=== PATIENT | male | born 1975 | race Caucasian/White ===

== ENCOUNTER 2025-02-14 23:25 | Emergency (ER) | payer OTHER, SELFPAY ==
--- OUTSIDE RECORDS SUMMARY | 2022-04-10 04:59 | XMS_ITS | Continuity of Care Document ---
Author Organization [facility] Address [address] [place] [address] Phone Care Team Providers Care [employer]obile [employer] Name Role Phone Services, Enabling Unavailable Unavailable Allergies, Adverse Reactions, Alerts Substance Reaction Status Criticality No Known Allergies Active No Inform ation Medications Medication Instructions Dosage Effective Dates (start - stop) Status Comments Wellbutrin SR 150 mg tablet, 12 hr sustained-release take 1 tablet by oral route 1 time daily for 3 days and then increase to 1 tablet twice daily afterwards - Active nicotine 21 mg/24 hr daily transdermal patch apply 1 patch by transdermal route every day and remove at bedtime 21 MG - Active hydrocortisone 2.5 % topical cream with perineal applicator apply by topical route 2- 4 times every day a thin layer to the affected area(s) 0.00 - Active Miralax 17 gram/dose oral powder take (17G) by oral route every day mixed with 8 oz. water, juice, soda, coffee or tea - Active Flonase Allergy Relief 50 mcg/actuation nasal spray,suspension spray 1 - 2 spray by intranasal route every day in each nostril as needed 50-100 MCG - Active Procedures Procedure Date Office OutPatient New Pt 15-29 Min SYST BP >= 140 MM HG6 IT Systolic: BP >= 140 DIAST BP 80-89 MM HG Diastolic: BP <90 WEIGHT RECORDED BODY MASS INDEX DOCD Advance Directives Directive Yes / No Effective Date File Name No Information Encounters Encounter Description Practice Location Reason(s) For Visit Diagnoses Date Provider Providers Copied on Encounter [facility], [address] [place] [address], [id number], tel:[phone] [facility] No Information 2 Services Enabling. [address] [place] [address], [id number] , [place]. tel: [phone] Office OutPatient New Pt 15-29 Min [facility], [address] [place] [address], [id number], [place] tel:[phone] [facility] est care (chief complaint) wrist pain (chief complaint) Body mass index (BMI) 24.0-24.9, adultExercise counselingDietary counseling and surveillanceHyperten melissa, unspecified typeTobacco abuseChronic wrist pain, leftOther chronic painInternal hemorrhoidScreening for lipid disordersScreening for diabetes mellitusScreening for thyroid disorderSinus pressureConstipation , unspecified constipation type 2 Nayana Eugene. [address] [place], [address], [place]. tel: [phone] Family History Family Member Type Diagnosis Age At Onset No Information Payers Payer name Insurance type Covered democrat ID Authoriza tigini(s) [facility] [id number] Wrap [address] [place] [address] [id number] Social History Type Description Quantity Date Captured Comments Alcohol Use Details Unknown Caffeine Use Details Unknown Tobacco Use Status Smoking Status No Information Sex Male Sexual Orientation Straight or heterosexual Gender Identity Male Chief Complaint And Reason For Visit No Information Reason For Referral Reason For Referral No Information Plan Of Treatment Date Type Action Status Goal Dietary manageme nt education, guidance, and counseling completed Referral Ordered: Rad Exam Wrist; Complete Left ordered Future Order: Lab Order CBC (INC LUDES DIFF/PLT) ([id number]), Sent on: Sent Future Order: Lab Order HEMOGLOB IN A1C ([id number]), Sent on: Sent Future Order: Lab Order COMPREHE NSIVE METABOLIC PANEL ([id number]), Sent on: Sent Future Order: Lab Order HEPATITI S B CORE AB TOTAL W/REFL IGM ([id number]), Sent on: Sent Future Order: Lab Order HIV 1/2 ANTIGEN/ANTIBODY, FOURTH GEN W/ REFLEX ([id number]), Sent on: Sent Future Order: Lab Order VITAMIN B12/FOLATE, SERUM PANEL ([id number]), Sent on: Sent Future Order: Lab Order VITAMIN D,25-OH,TOTAL,IA ([id number]), Sent on: Sent Future Order: Lab Order TSH, 3RD GENERATION ([id number]), Sent on: Sent Future Order: Lab Order HEPATITI S A AB, TOTAL W/REFL IGM ([id number]), Sent on: Sent Future Order: Lab Order HEPATITI S B SURFACE ANTIBODY QL ([id number]), Sent on: Sent Future Order: Lab Order HEPATITI S B SURFACE ANTIGEN W/REFL CONFIRM ([id number]), Sent on: Sent History Of Present Illness Encounter Date Complaint History Of Prese nt Illness wrist pain Comments: pt sta raymond chronic, had an injury many years ago, never got seen for it. Still causes him pain. est care Comments: Last s een: [place] and incarceration has not been seen in the last 2-3 yearsMedical History: HTN, ADD, Heart murmur as a childSurgical History: deniesFamily History:Mom: Alzheimer's disease, alcohol abuse, smokerDad: [place] unsure what kindAlcohol: deniesTobacco: 1PPD approximately 25-30 yearsDrugs: MJ weekly, Meth occasionalImmunizations: COVID-19: denies, not interested FLu: denies Tdap: 2-5 years ago Functional Status Date Functional Assessmen t No Information Instructions Date Instruction Additional Infor mation Prescribed activity/ exercise education Related to Body mass index (BMI) 24.0-24.9, adult Dietary management e ducation, guidance, and counseling Related to Body mass index (BMI) 24.0-24.9, adult Assessments Type Assessment Date No Information Patient Care Teams Name Effective Dates (start - stop) Status Members No Information
--- OUTSIDE RECORDS SUMMARY | 2024-02-13 09:44 | XMS_ITS | Continuity of Care Document ---
Author Organization [facility] Address [address] [place] [address] Phone Care Team Providers Care Beam Doffer Name Role Phone PATIENT, DEHAIRER Unavailable Unavai lable Allergies, Adverse Reactions, Alerts Substance Reaction Status Criticality No Known Allergies Active No Inform ation Medications Medication Instructions Dosage Effective Dates (start - stop) Status Comments ibuprofen 800 mg tablet take 1 tablet by oral route 3 times every day with food as needed for Tooth pain 800 MG - Active Procedures Procedure Date Office Visit For Observation ([facility] Intraoral-Periapical First Radiographic Image Bitewing-Single Radiographic Image Extraction, Erupted Tooth Or Exposed Mar t (Elevati Office Visit For Observation ([facility] Referral Indicated Office Visit For Observation ([facility] Intraoral-Periapical First Radiographic Image Bitewing-Single Radiographic Image Referral Indicated Advance Directives Directive Yes / No Effective Date File Name No Information Encounters Encounter Description Practice Location Reason(s) For Visit Diagnoses Date Provider Providers Copied on Encounter [facility], [address] [place], [address], [place] tel:[phone] [facility] No Information PATIENT CARE COORDINAT OR. . [facility], [address] [place], [place], [address] [place] [address] tel:[phone] [facility] Dental Encounter for dental examination and cleaning with abnormal findingsDental caries on smooth surface penetrating into pulp El-0 4 ANTONIO DAMIAN. [address] [place], [place], [address] [place] [address]. tel:[phone] Referring Provider: RICKIE ALVAREZ, [address] [place], [place], [facility]. tel:[phone] [facility], [address] [place] [address], [address] [place] [address] tel:[phone] [facility] Dental caries on smooth surface penetrating into pulp May- 3 QUIN ALFREDO. [address] [place] [address], [id number] , [place]. tel:[phone] Referring Provider: UVALDO WASHINGTON, [address] [place], [place], [facility]. tel:[phone] [facility], [address] [place], [place], [address] [place] [address] tel:[phone] [facility] Dental caries on smooth surface penetrating into pulp Apr- 3 PADMINI BAILON. [address] [place], [place], [address] [place] [address]. tel:[phone] Referring Provider: UVALDO WASHINGTON, [address] [place], [place], [facility]. tel:[phone] [facility], [address] [place], [place], [address] [place] [address] [phone] [facility] Dental caries on smooth surface penetrating into pulpDental caries on smooth surface penetrating into dentin Mar-2 3 PADMINI BAILON. [address] [place], [place], [address] [place] [address]. tel:[phone] Referring Provider: UVALDO WASHINGTON, [address] [place] [address], [facility]. tel:[phone] Family History Family Member Type Diagnosis Age At Onset No Information Payers Payer name Insurance type Covered green party ID Authoriza tion(s) [facility] 21 And Over CI [id number] 18 Wrap [id number] Social History Type Description Quantity Date Captured Comments Sex Male Smoking Status No Information Sexual Orientation Straight or heterosexual Gender Identity Male Chief Complaint And Reason For Visit No Information Reason For Referral Reason For Referral No Information Plan Of Treatment Date Type Action Status Goal Depression screening. Due on due Goal Hepatitis C screening. Due o n due Goal Drug Use Screening. Due on due Goal Hepatitis B Screening. Due o n due Goal Lipid panel. Due on due Goal HIV Screening. Due on due Goal PPD (TST). Due on due Goal FIT. Due on due Goal Colonoscopy. Due on due Goal FIT-DNA. Due on due Goal FIT-DNA. Due on due Goal Colonoscopy. Due on due Goal FIT. Due on due Goal Lipid panel. Due on due Goal HIV Screening. Due on due Goal Drug Use Screening. Due on due Goal Hepatitis C screening. Due o n due Goal PPD (TST). Due on due Goal Hepatitis B Screening. Due o n due Goal Depression screening. Due on due Referral Ordered: Referrals: Dental - Endodontic. Evaluate and treat ordered History Of Present Illness Encounter Date Complaint History Of Prese nt Illness No Information Functional Status Date Functional Assessmen t No Information Instructions Date Instruction Additional Infor mation No Information Assessments Type Assessment Date No Information Patient Care Teams Name Effective Dates (start - stop) Status Members No Information
[2025-02-14 23:48] VITALS: BP 156/86; PULSE 84; RESP 17; TEMP 36.7; O2SAT 98; BMI 24.4
[2025-02-15 00:20] LABS: Hematocrit 42.8 % (37-53); Hemoglobin 14.10 g/dL (11.27-16.99); Mean Corpuscular HGB Conc 32.9 g/dL (30-55); Mean Corpuscular Hemoglobin 30.2 pg (27-33); Mean Corpuscular Volume 91.6 fl (82-101); Nucleated Red Blood Cells % 0 %; Platelet Count 268 10^3/cmm (157-399); Red Blood Count 4.67 10^6/uL (3.85-5.65); White Blood Count 8.90 10^3/uL (3.29-11.43)
--- NOTE | 2025-02-15 00:24 | CTR_ITS ---
PROCEDURE INFORMATION: Exam: CT Abdomen And Pelvis Without Contrast Exam date and time: 02/15/2025 12:33 AM Age: 49 years old Clinical indication: Abdominal pain; C/O left flank pain with n/v TECHNIQUE: Imaging protocol: Computed tomography of the abdomen and pelvis without contrast. Sagittal and coronal reformatted images were also reviewed. Radiation optimization: All CT scans at this facility use at least one of these dose optimization techniques: automated exposure control; mA and/or kV adjustment per patient size (includes targeted exams where dose is matched to clinical indication); or iterative reconstruction. COMPARISON: No relevant prior studies available. RADIATION DOSE METRICS: Total DLP (mGy-cm): 394.38 FINDINGS: Limitations: Evaluation of solid organs and vasculature is limited without intravenous contrast. This is standard protocol for evaluation of possible urolithiasis. Liver: The liver is unremarkable. Gallbladder and biliary ducts: The gallbladder is unremarkable. No biliary ductal dilatation. Pancreas: The pancreas is unremarkable. No pancreatic ductal dilatation. Spleen: The spleen is unremarkable. Adrenal glands: The right and left adrenal glands are unremarkable. Kidneys and ureters: The right kidney is unremarkable. The right ureter is unremarkable. 2 stones adjacent to each other in the distal left ureter just above the left ureterovesicular junction. The more proximal stone measures 2.5 mm, and the more distal stone measures 3.2 mm (series 4, images 179-180). Mild left hydronephrosis and proximal hydroureter to the level of the stone and mild left perinephric/periureteral inflammation. Stomach and bowel: No acute abnormality in the stomach, small bowel, or colon. Appendix: The appendix is visualized and is unremarkable. No findings to suggest acute appendicitis. Intraperitoneal space: No free intraperitoneal air. No ascites. No loculated fluid collections to suggest an abscess. Vasculature: Minimal atherosclerotic changes in the visualized arteries. No evidence for aortic aneurysm. Lymph nodes: No lymphadenopathy. Urinary bladder: Diffuse, mild bladder wall thickening. Reproductive: Nonspecific parenchymal calcifications in the prostate gland. Bones/joints: [id number] multilevel degenerative changes in the visualized spine. Soft tissues: No acute abnormality in the extra-abdominal soft tissues. CT/CT kidney stone [id number] IMPRESSION: 1. 2 stones adjacent to each other in the distal left ureter just above the left ureterovesicular junction. The more proximal stone measures 2.5 mm, and the more distal stone measures 3.2 mm. Mild left hydronephrosis and proximal hydroureter to the level of the stone and mild left perinephric/periureteral inflammation. 2. Diffuse, mild bladder wall thickening. In the correct clinical setting, this may suggest cystitis. Recommend correlation with laboratory findings. 3. Incidental/nonacute findings are listed in the report.
[2025-02-15 00:34] LABS: Alanine Aminotransferase 23 U/L (0-41); Albumin Level 4.3 g/dL (3.5-5.2); Alkaline Phosphatase 75 U/L (40-130); Anion Gap 16.0 (5-19); Aspartate Amino Transferase 23 U/L (0-40); Blood Urea Nitrogen 15 mg/dL (6-20); Calcium 9.2 mg/dL (8.5-10.5); Carbon Dioxide 25 mmol/L (22-29); Chloride 101 mmol/L (98-107); Creatinine Clr Calc Pharmacy 82.8083; Globulin 2.9 g/dL (1.3-4.6); Glucose 109 mg/dL (65-115); Lipase 35 U/L (13-60); Osmolality Calculated 287 mOsm/kg (285-295); Potassium 4.0 mmol/L (3.5-5.1); Sodium 138 mmol/L (136-145); Total Protein 7.2 g/dL (6.6-8.7)
[2025-02-15] MEDS: ondansetron 2 mg/ML SDV 2 mL 4 MG IVP (00:40)
[2025-02-15 00:41] VITALS: RESP 17
[2025-02-15] MEDS: morphine 4 mg/mL SDV 1 mL IVP (00:41)
[2025-02-15 01:00] VITALS: BP 142/93; PULSE 79; RESP 16; O2SAT 98
[2025-02-15 02:00] VITALS: BP 140/90; PULSE 76; RESP 15; O2SAT 99
[2025-02-15 02:12] LABS: Glucose Urine UA Negative (Normal); Nitrate Urine Negative (Negative); Specific Gravity, Urine 1.015 (1.005-1.030)
[2025-02-15 02:17] LABS: Add Urine Microscopic? YES
[2025-02-15 02:28] LABS: UA Slide Review UA Slide Review Perf
--- NOTE | 2025-02-15 02:44 | ED_ITS ---
HPI - Abdominal Pain 2 General: Chief Complaint: Abdominal Pain Stated Complaint: Kidney stone he believes Time Seen by Provider: 02/15/25 00:20 History of Present Illness: 49 year old male here with left flank an d left lower quadrant pain for one to two hours. He hu been vomiting. Pain is episodic but intense. somewhat improved right now. urine appeared dark period no james blood period no diarrhea period no fever. no history of abdominal surgery. Related Data Previous Rx's ?Medication ?Instructions ?Recorded ondansetron 4 mg disintegrating 4 mg PO Q6H PRN nausea and 02/15/25 tablet vomiting #14 tabs oxycodone-acetaminophen 7.5 mg-325 1 tab PO Q6H PRN pa in #10 tabs 02/15/25 mg tablet (Percocet) tamsulosin 0.4 mg capsule (Flomax) 0.4 mg PO DAILY #10 caps 02/15/25 Allergies Allergy/AdvReac Type Severity Reaction Status Date / Time No Known Allergies Allergy Verified 02/14/25 23:51 Physical Exam 2 Const: GENERAL APPEARANCE: cooperative; not frail appearing HENMT: COMMON NORMALS: normocephalic, atraumatic and Normal external nose present HEAD & SCALP: normocephalic and atraumatic FACE & SINUS: normal facial exam and face symmetric NOSE: Normal external nose present Eye: COMMON NORMALS: Equal, round and reactive pupils present and EOMs intact bilaterally PUPIL: Yes Equal, round and reactive pupils present Neck/C-Spine: GENERAL: Yes trachea midline Chest: CHEST: Yes Symmetrical chest wall rise Resp: COMMON NORMALS: normal respiratory effort, No retractions, No use of accessory muscles and clear to auscultation bilaterally AUSCULTATION: clear to auscultation bilaterally Cardio: COMMON NORMALS: regular rate and regular rhythm RATE: regular rate RHYTHM: regular rhythm GI: COMMON NORMALS: Normal to inspection, nondistended, normoactive bowel sounds present PALPATION: Yes Tenderness to palpation present (GI) Details: LLQ : BLADDER/KIDNEY EXAM: Yes CVA tenderness on the left Back/Pelvis: GENERAL BACK: Yes CVA tenderness Extremity: COMMON NORMALS: no pedal edema Neuro: ARTHUR COMA SCALE: document GCS findings Arthur coma scale eye opening: Spontaneous Arthur coma scale verbal response: Orientated Arthur coma scale motor response: Obey commands Arthur coma scale total score: 15 S ENSORY EXAM: Yes extremities (intact) Psych: COMMON NORMALS: speech normal SPEECH: Yes normal speech Skin: COMMON NORMALS: no rashes or lesions noted GENERAL SKIN EXAM: no rashes or lesions noted Course 2 Vital Signs: Vital signs: Vital Signs Temperature 98.0 F 02/14/25 23:48 Pulse Rate 77 02/15/25 03:02 Respiratory Rate 15 02/15/25 03:02 Blood Pressure 153/86 02/15/25 03:02 Pulse Oximetry 100 02/15/25 03:02 Oxygen Delivery Me thod Room Air 02/15/25 02:00 MDM - Abdominal Pain Medical Decision Making Vitals are stable period laboratory is not remarkable. CT scan shows 2 adjacent stones in the left distal ureter, one 2.5, one 3.2mm. Symptoms are improved currently. He will strain his urine. Pain medication, anti emetic, and Flomax. Urology follow up. Return if worsening symptoms. Urinalysis shows no evidence of infection. Lab Data 02/15/25 00:15 02/15/25 00:15 Labs/Radiology: Radiology Impressions Abdomen/Pelvis CT 02/15/25 00:24 IMPRESSION: 1. 2 stones adjacent to each other in the distal left ureter just above the left ureterovesicular junction. The more proximal stone measures 2.5 mm, and the more distal stone measures 3.2 mm. Mild left hydronephrosis and proximal hydroureter to the level of the stone and mild left perinephric/periureteral inflammation. 2. Diffuse, mild bladder wall thickening. In the correct clinical setting, this may suggest cystitis. Recommend correlation with laboratory findings. 3. Incidental/nonacute findings are listed in the report. Laboratory Results WBC 8.90 10^3/uL (3.29-11.43) 02/15/25 00:15 RBC 4.67 10^6/uL (3.85-5.65) 02/15/25 00:15 Hgb 14.10 g/dL (11.27-16.99) 02/15/25 00:15 Hct 42.8 % (37-53) 02/15/25 00:15 MCV 91.6 fl (82-101) 02/15/25 00:15 MCH 30.2 pg (27-33) 02/15/25 00:15 MCHC 32.9 g/dL (30-55) 02/15/25 00:15 RDW 12.4 % (12.1-15.1) 02/15/25 00:15 Plt Count 268 10^3/cmm (157-399) 02/15/25 00:15 MPV 9.3 fL (7.4-10.4) 02/15/25 00:15 Neut % (Auto) 52.8 % 02/15/25 00:15 Lymph % (Auto) 35.2 % 02/15/25 00:15 [place] % (Auto) 8.3 % 02/15/25 00:15 Eos % (Auto) 2.9 % 02/15/25 00:15 Baso % (Auto) 0.6 % 02/15/25 00:15 Neut # (Auto) 4.70 10^3/uL (1.8-7.7) 02/15/25 00:15 Lymph # (Auto) 3.1 10^3/uL (0.8-4.8) 02/15/25 00:15 [place] # (Auto) 0.7 10^3/uL (0.2-0.9) 02/15/25 00:15 Eos # (Auto) 0.3 10^3/uL (0.0-0.8) 02/15/25 00:15 Baso # (Auto) 0.1 10^3/uL (0.0-0.1) 02/15/25 00:15 Nucleated RBC % (auto) 0 % 02/15/25 00:15 Nucleated RBCs # 0.0 /100WBC 02/15/25 00:15 Sodium 138 mmol/L (136-145) 02/15/25 00:15 Potassium 4.0 mmol/L (3.5-5.1) 02/15/25 00:15 Chloride 101 mmol/L (98-107) 02/15/25 00:15 Carbon Dioxide 25 mmol/L (22-29) 02/15/25 00:15 Anion Gap 16.0 (5-19) 02/15/25 00:15 BUN 15 mg/dL (6-20) 02/15/25 00:15 Creatinine 1.2 mg/dL (0.7-1.2) 02/15/25 00:15 GFR Calculation 64.9 mL/min (90-130) L 02/15/25 00:15 Glucose 109 mg/dL (65-115) 02/15/25 00:15 Calculated Osmolality 287 mOsm/kg (285-295) 02/15/25 00:15 Calcium 9.2 mg/dL (8.5-10.5) 02/15/25 00:15 Total Bilirubin 0.5 mg/dL (0.15-1.2) 02/15/25 00:15 AST 23 U/L (0-40) 02/15/25 00:15 ALT 23 U/L (0-41) 02/15/25 00:15 Alkaline Phosphatase 75 U/L (40-130) 02/15/25 00:15 Total Protein 7.2 g/dL (6.6-8.7) 02/15/25 00:15 Albumin 4.3 g/dL (3.5-5.2) 02/15/25 00:15 Globulin 2.9 g/dL (1.3-4.6) 02/15/25 00:15 Lipase 35 U/L (13-60) 02/15/25 00:15 Urine Color Yellow (Yellow) 02/15/25 01:55 Urine Appearance Clear (CLEAR) 02/15/25 01:55 Urine pH 6.0 (5-7) 02/15/25 01:55 Ur Specific [place] 1.015 (1.005-1.030) 02/15/25 01:55 Urine Protein Negative (Negative) 02/15/25 01:55 Urine Glucose (UA) Negative (Normal) 02/15/25 01:55 Urine Ketones Negative (Negative) 02/15/25 01:55 Urine Blood 2+ (Negative) A 02/15/25 01:55 Urine Nitrate Negative (Negative) 02/15/25 01:55 Urine Bilirubin Negative (Negative) 02/15/25 01:55 Urine Urobilinogen 1.0 mg/dL (Negative) 02/15/25 01:55 Ur Leukocyte Esterase Trace (Negative) A 02/15/25 01:55 Urine RBC 6-10 /hpf (0-2) 02/15/25 01:55 Urine WBC 0-5 /hpf (0-5) 02/15/25 01:55 Ur Squamous Epith Cells 0-5 /hpf (0-5) 02/15/25 01:55 Amorphous Sediment Not Reportable 02/15/25 01:55 Urine Bacteria None seen /hpf (NONE) 02/15/25 01:55 Hyaline Casts 0.81 /lpf 02/15/25 01:55 All radiology interpretation(s) finalized by discharge Discharge Plan Discharge Patient Disposition: Home Clinical Impression: Ureterolithiasis Condition: Stable Prescriptions: New oxycodone-acetaminophen [Percocet] 7.5-325 mg tablet 1 tab PO Q6H PRN (Reason: pain) Qty: 10 0RF ondansetron 4 mg tablet,disintegrating 4 mg PO Q6H PRN (Reason: nausea and vomiting) Qty: 14 0RF tamsulosin [Flomax] 0.4 mg capsule 0.4 mg PO DAILY Qty: 10 0RF Discharge Orders: Discharge ED (Routine); Ordered 02/15/25 Ordered By: Nitish Clifford Referrals: Dorie [Other] Rian Marie [Referring, Urology] - 4-7 days Patient Instructions: Kidney Stones (ED), Opioid Safety, Pain Management, Patient Portal & Leonor Instructions Activity Restrictions/Additional Instructions: Medication as directed. Drink plenty of liquids. Strain your urine. Return for any problems. Follow-up with urology. Call them at the number listed above on Sunday morning. Print Language: Citizen [place] Coding Level of Care Code ED Traditional [facility] Practitioner for Hair James
[2025-02-15 03:02] VITALS: BP 153/86; PULSE 77; RESP 15; O2SAT 100
== END 2025-02-15 03:04 | disposition home or self-care (01) ==
PROVIDERS: Registered Nurse; Emergency Provider Emergency Medicine
DX: N20.1 Calculus of ureter (principal)
CPT/HCPCS: 74176; 80053; 81001; 83690; 85025; 96361; 96374; 96375; 99285; J1885; J2270; J2405; J7030